=== PATIENT | female | born 2000 | race Two or more races ===

== ENCOUNTER 2025-02-27 14:33 | Emergency (ER) | payer OTHER ==
[~2025-02-27] VITALS: Ht 160 cm; Wt 68.0 kg
[2025-02-27 16:25] VITALS: BP 103/65; O2SAT 99
[2025-02-27] MEDS ORDERED: KETOROLAC TROMETHAMINE 30 MG VIAL IM STA (16:32)
[2025-02-27] MEDS ORDERED: DEXAMETHASONE SODIUM PHOSPHATE 4 MG/ML VIAL IM STA (16:32)
[2025-02-27] MEDS ORDERED: KETOROLAC TROMETHAMINE 30 MG VIAL ONE (17:11)
[2025-02-27] MEDS ORDERED: DEXAMETHASONE SODIUM PHOSPHATE 4 MG/ML VIAL ONE (17:11)
== END 2025-02-27 21:49 | disposition home or self-care (01) ==
LOC: ER 14:33
DX: M79.641 Pain in right hand (principal); Z91.018 Allergy to other foods